=== PATIENT | female | born 1985 | race Asian ===

== ENCOUNTER 2019-08-24 14:25 | Emergency (ER) | payer OTHER ==
[~2019-08-24] VITALS: Ht 157.5 cm; Wt 77.6 kg
[2019-08-24 14:39] VITALS: Ht 157.5 cm; Wt 77.6 kg
[2019-08-24 15:51] LABS: BASOPHIL % 0.6 % (0-2); PLATELET COUNT 290 x10^3mcL (130-400); RED CELL DISTRIBUTION WIDTH 12.7 % (11.5-14.5)
[2019-08-24 16:09] LABS: CALCIUM 9.1 mg/dL (8.5-10.1); CARBON DIOXIDE 28.2 mmol/L (21-32); CHLORIDE SERUM 105 mmol/L (98-107); CREATININE SERUM 0.8 mg/dL (0.6-1.0); GFR1 > 60 mL/min; GLUCOSE SERUM 126 mg/dL (74-106); POTASSIUM SERUM 3.9 mmol/L (3.5-5.1); SODIUM SERUM 142 mmol/L (136-145)
[2019-08-24 16:14] LABS: ALKALINE PHOSPHATASE 41 U/L (46-116); ALT/SGPT 24 U/L (14-59); AST/SGOT 10 U/L (15-37); BILIRUBIN TOTAL 0.5 mg/dL (0.20-1.00); TOTAL PROTEIN, SERUM 7.3 g/dL (6.4-8.2)
[2019-08-24 16:52] VITALS: BP 112/66
== END 2019-08-24 17:50 | disposition home or self-care (01) ==
LOC: EDBD 14:25 → ED 14:25
PROVIDERS: Emergency Medicine
DX: M94.0 Chondrocostal junction syndrome [Tietze] (principal); F43.20 Adjustment disorder, unspecified
CPT/HCPCS: 36415; 83880; J1885

== ENCOUNTER 2019-09-02 11:43 | Emergency (ER) | payer OTHER ==
[~2019-09-02] VITALS: Ht 165.1 cm; Wt 78.0 kg
[2019-09-02 11:53] VITALS: Ht 165.1 cm; Wt 78.0 kg
[2019-09-02 14:28] VITALS: BP 109/67
== END 2019-09-02 14:29 | disposition home or self-care (01) ==
LOC: ED 11:43
DX: F43.22 Adjustment disorder with anxiety (principal)